=== PATIENT | female | born 1985 | race Asian ===

== ENCOUNTER 2016-09-10 08:00 | Inpatient (IN) | payer OTHER ==
[~2016-09-10] VITALS: Ht 160 cm; Wt 84.5 kg
[2016-09-10] MEDS ORDERED: OXYTOCIN 30 UNITS/LR 500 ML IV PRN ×2 (09:00→20:30)
[2016-09-10] MEDS ORDERED: MISOPROSTOL 200 MCG TAB PR PRN ×2 (09:00→20:30)
[2016-09-10] MEDS ORDERED: METHYLERGONOVINE 0.2 MG INJ IM PRN ×2 (09:00→20:30)
[2016-09-10] MEDS ORDERED: BUTORPHANOL 2 MG INJ IV PRN (09:00)
[2016-09-10] MEDS ORDERED: LIDOCAINE 1% (MPF) 30 ML INJ INJ PRN (09:00)
[2016-09-10] MEDS ORDERED: IBUPROFEN 600 MG TAB PO PRN (09:00)
[2016-09-10] MEDS ORDERED: LACTATED RINGER'S 1,000 ML IV PRN (09:00)
[2016-09-10] MEDS ORDERED: CARBOPROST 250 MCG INJ IM PRN ×2 (09:00→20:30)
[2016-09-10] MEDS ORDERED: OXYTOCIN 30 UNITS/LR 500 ML IV SCH ×3 (09:00→20:10)
[2016-09-10] MEDS: LACTATED RINGER'S 1,000 ML IV SCH ×3 (09:30→18:12)
[2016-09-10 09:51] LABS: BASOPHILS % 0.4 % (0.0-2.0); EOSINOPHILS # 0.1 10^3/ul (0.0-0.5); EOSINOPHILS % 0.8 % (0.0-7.0); HEMATOCRIT 33.4 % (37.0-47.0); HEMOGLOBIN 11.1 g/dl (12.0-16.0); LYMPHOCYTES # 1.5 10^3/ul (0.8-2.9); LYMPHOCYTES % 14.8 % (15.0-51.0); MEAN CORPUSCULAR HEMOGLOBIN 26.8 pg (29.0-33.0); MEAN CORPUSCULAR HGB CONC 33.1 g/dl (32.0-37.0); MONOCYTE # 0.8 10^3/ul (0.3-0.9); NEUTROPHIL # 7.6 10^3/ul (1.6-7.5); PLATELET COUNT 241 10^3/UL (140-440); RED BLOOD COUNT 4.13 10^6/ul (4.20-5.40); RED CELL DISTRIBUTION WIDTH 14.4 % (11.5-14.5)
[2016-09-10 10:00] LABS: CONDITION 1; LH ANALYZER COMMENTS 1
[2016-09-10 10:03] LABS: INR 0.96; PROTIME 12.8 Sec (12.2-14.2)
[2016-09-10 10:04] LABS: PARTIAL THROMBOPLASTIN TIME 26.9 Sec (25.0-35.0)
[2016-09-10 10:31] VITALS: Ht 160 cm; Wt 84.5 kg
[2016-09-10] MEDS ORDERED: FENTAnyl 2MCG/ML-ROPIV 0.2% 100 ML ONE (12:58)
[2016-09-10] MEDS ORDERED: FENTAnyl 2MCG/ML-ROPIV 0.2% 100 ML BAG EPI SCH (13:30)
[2016-09-10] MEDS ORDERED: NALOXONE (0.4 MG/ML) INJ IV PRN (13:30)
[2016-09-10] MEDS ORDERED: LACTATED RINGER'S 1,000 ML IV* SCH (20:10)
--- NOTE | 2016-09-10 20:21 | LDN ---
Date/Time of Note Date/Time of Note DATE: 09/10/16 TIME: 20:18 Delivery Summary of a viable baby girl named Thomas, weighing 3600 grams or 7# 15oz, 20" long and with Apgars of 8/9. Placenta Delivered: Spontaneously Meconium: none Perineum intact?: No Perineal laceration: 2 Perineal laceration repair: Second degree perineal laceration and a first degree vaginal laceration repaired with 2-0 chromic. Anesthesia type: Epidural Estimated blood loss: 300 Sponge & Needle done & correct: Yes All needle counts correct: Yes Any foreign bodies felt in the: No (vagina) Problems: Infant Delivery Information Sex Infant Sex: female Apgars 1 Minute: 8 5 Minute: 9 Suctioning Nose & mouth suctioned at peter: Yes Delee suction performed: No Umbilical Cord Umbilical cord with: 3 Vessels Cord presentations: no nuchal cord Cord Blood was obtained: Yes Mother & Baby Disposition Disposition Mom & Baby to Maternity; Good: Yes Baby to NICU: No ARJUN CAREY MD Sep 10, 2016 20:21
[2016-09-10] MEDS ORDERED: LANOLIN 7 GM TUBE TOP PRN (20:30)
[2016-09-10] MEDS ORDERED: OXYCODONE/ASPIRIN (4.88/325) TAB PO PRN (20:30)
--- NOTE | 2016-09-10 20:36 | HP ---
Date/Time of Note Date/Time of Note DATE: 09/10/16 TIME: 20:21 OB - History Hx of Present Free Text/Dictation 30 y.o. with an IUP at 40 weeks 2 days in for induction for postdates. Last Menstrual Period: December 03, 2015 Estimated Due Date: Sep 08, 2016 : 2 Para: 1 Spontaneous : 0 Therapeutic : 0 Care: Good Care Ultrasounds: Normal mid trimester US Obstetrical Complications: None Medical Complications: None Past Family/Social History * Past Medical, Surgical, Family and Obstetric Histories reviewed from chart. Blood Type: B+ Rubella: immune RPR/VDRL: Negative GBS Status: Negative HBsAG: Negative OB Admission Exam Vital Signs Vital Signs T= 98.2. BP 120/71 Physical Exam HEENT: WNL Heart: Rhythm Normal Lungs: Clear Abdomen: WNL Extremities: Normal Reflexes: Normal Cervical Dilatation: 3cm Effacement: 75% Station: -2 Membranes: Intact Heart Rate: 130's Accelerations: Accelerations Present Decelerations: No Decelerations Varibility: Moderate Contractions on Admission: 6-10 Minutes Apart Last 72 hours Lab Results CBC & BMP 09/10/16 09:26 OB Assessment/Plan Reason for admission: induction of labor Plan: Induction Induction Method: per Pitocin Protocol ARJUN CAREY MD Sep 10, 2016 20:36
[2016-09-10 22:15] VITALS: BP 127/67; RESP 18
[2016-09-10] MEDS: IBUPROFEN 600 MG TAB PO SCH (23:33)
[2016-09-10] MEDS: BENZOCAINE 20% 56 ML SPRAY TOP PRN (23:34)
[2016-09-10] MEDS: WITCH HAZEL/GLYCERIN PAD PR PRN (23:34)
[2016-09-11 04:00] VITALS: BP 106/63; RESP 18
[2016-09-11] MEDS: IBUPROFEN 600 MG TAB PO SCH ×3 (05:38→17:40)
[2016-09-11 07:35] LABS: BASOPHILS % 0.1 % (0.0-2.0); EOSINOPHILS % 0.2 % (0.0-7.0); HEMATOCRIT 25.4 % (37.0-47.0); HEMOGLOBIN 8.4 g/dl (12.0-16.0); LYMPHOCYTES # 1.5 10^3/ul (0.8-2.9); LYMPHOCYTES % 10.3 % (15.0-51.0); MEAN CORPUSCULAR HEMOGLOBIN 27.1 pg (29.0-33.0); MEAN CORPUSCULAR HGB CONC 33.2 g/dl (32.0-37.0); MEAN CORPUSCULAR VOLUME 81.4 fl (82.0-101.0); MEAN PLATELET VOLUME 8.1 fl (7.4-10.4); MONOCYTE # 1.3 10^3/ul (0.3-0.9); MONOCYTES % 8.6 % (0.0-11.0); NEUTROPHIL # 12.1 10^3/ul (1.6-7.5); NEUTROPHILS % 80.8 % (39.0-77.0); PLATELET COUNT 197 10^3/UL (140-440); RED BLOOD COUNT 3.12 10^6/ul (4.20-5.40)
[2016-09-11 07:41] LABS: CONDITION 1; LH ANALYZER COMMENTS 1
[2016-09-11 08:10] VITALS: BP 114/68; RESP 18
[2016-09-11 16:20] VITALS: BP 121/56; RESP 18
[2016-09-11 19:45] VITALS: BP 100/58; PULSE 80; RESP 20
[2016-09-11] MEDS: WITCH HAZEL/GLYCERIN PAD PR PRN (20:42)
[2016-09-11] MEDS: BENZOCAINE 20% 56 ML SPRAY TOP PRN (20:42)
[2016-09-12] MEDS: IBUPROFEN 600 MG TAB PO SCH ×4 (03:36→17:35)
[2016-09-12 04:30] VITALS: BP 111/58; PULSE 76; RESP 18
[2016-09-12 08:00] VITALS: BP 113/73; PULSE 71; RESP 20
[2016-09-12] MEDS ORDERED: INFLUENZA VIRUS VACCINE 0.5 ML (DISPENSING) IM* ONE (09:00)
[2016-09-12] MEDS ORDERED: DIPHTH/TET/ACEL PERTUSS (ADULT) 0.5 ML VIAL IM* ONE (09:00)
[2016-09-12 15:54] VITALS: BP 116/66; PULSE 70; RESP 18
--- NOTE | 2016-09-12 17:29 | PD.PPDC ---
CREDIT COMPLIANCE OFFICER Discharge Instruction Condition Patient Condition: Good Diet Diet: Resume Regular Diet Activity/Restrictions Activity: Normal Activity Restrictions: No Sexual Activity Nothing in the Vagina No [place] No Tampons, douche Follow-up Follow-up with Physician: 6 Return to clinic for DEPARTMENT OF SOCIOLOGY CHAIR Instructions: Fever greater than 101 Chills Worsening abdominal pain Excessive Vaginal Bleeding OB Instructions: Breast Tenderness Depression ARJUN CAREY MD Sep 12, 2016 17:29
--- NOTE | 2016-09-12 17:31 | DS ---
Date/Time of Note Date/Time of Note DATE: 09/12/16 TIME: 17:30 Obstetrical Discharge Record Final Diagnosis Final Diagnosis: Term delivered Section Section: Repeat Complications Other (Minimal care) Augmentation: No Induction: No Condition on Discharge Physical Assessment Last Vitals: T=98.1 BP 116/66 Voiding: Yes Bowel Movement: Yes Breast: Filling Fundus: Firm Calf Tenderness: No Patient Condition: Good ARJUN CAREY MD Sep 12, 2016 17:31
== END 2016-09-12 18:31 | disposition home or self-care (01) | DRG 775 ==
LOC: L-D 08:31 → PP1 22:12
PROVIDERS: ADMIT Obstetrics & Gynecology; ATTEND Obstetrics & Gynecology
PROC: 0KQM0ZZ Repair Perineum Muscle, Open Approach (ICD-10-PCS; 2016-09-10)
PROC: 10E0XZZ Delivery of Products of Conception, External Approach (ICD-10-PCS; principal; 2016-09-10 08:00)
PROC: 3E00X4Z Introduction of Serum, Toxoid and Vaccine into Skin and Mucous Membranes, External Approach (ICD-10-PCS; 2016-09-12)
DX: O48.0 Post-term pregnancy (principal); O70.1 Second degree perineal laceration during delivery; Z23 Encounter for immunization; Z37.0 Single live birth; Z3A.40 40 weeks gestation of pregnancy
CPT/HCPCS: 62319; 85025; 85610; 85730; 86592; 86900; 86901; 90686; 90715; J2590; J3010; J7120